=== PATIENT | male | born 1975 | race Caucasian/White ===

== ENCOUNTER 2023-03-12 09:43 | Emergency (ER) | payer MEDICAID, OTHER ==
[~2023-03-12] VITALS: Ht 172.7 cm; Wt 94.5 kg
[2023-03-12 09:55] VITALS: BP 122/90; PULSE 78; RESP 18; TEMP 98.5
[2023-03-12] MEDS ORDERED: KETOROLAC TROMETHAMINE 60 MG/2 ML VIAL IM ONE (12:15)
[2023-03-12] MEDS ORDERED: IBUP-1492 PO (13:00)
== END 2023-03-12 13:28 | disposition home or self-care (01) ==
LOC: EMS 09:59
DX: S86.911A Strain of unspecified muscle(s) and tendon(s) at lower leg level, right leg, initial encounter (principal); E78.00 Pure hypercholesterolemia, unspecified; I10 Essential (primary) hypertension; F17.210 Nicotine dependence, cigarettes, uncomplicated; X58.XXXA Exposure to other specified factors, initial encounter; Y93.89 Activity, other specified; Y92.89 Other specified places as the place of occurrence of the external cause; Y99.8 Other external cause status
CPT/HCPCS: 99283; 29505; 73562; 96372; J1885

== ENCOUNTER 2023-03-17 07:26 | Emergency (ER) | payer MEDICAID ==
[~2023-03-17] VITALS: Ht 170.2 cm; Wt 102.0 kg
[~2023-03-17 07:26] MED LIST: IBUP-1492 PO
[2023-03-17 08:35] VITALS: BP 142/71; PULSE 87; RESP 18; TEMP 98
[2023-03-17] MEDS ORDERED: IBUP-1554 PO (08:38)
[2023-03-17] MEDS ORDERED: METH-812 PO (08:38)
[2023-03-17] MEDS ORDERED: HYDR-4723 PO (08:38)
== END 2023-03-17 08:50 | disposition home or self-care (01) ==
LOC: EMS 07:26
DX: S76.911A Strain of unspecified muscles, fascia and tendons at thigh level, right thigh, initial encounter (principal); E78.00 Pure hypercholesterolemia, unspecified; I10 Essential (primary) hypertension; F17.210 Nicotine dependence, cigarettes, uncomplicated; X58.XXXA Exposure to other specified factors, initial encounter; Y93.89 Activity, other specified; Y92.89 Other specified places as the place of occurrence of the external cause; Y99.8 Other external cause status
CPT/HCPCS: 99283; Z7502